=== PATIENT | female | born 1955 | race Caucasian/White ===

== ENCOUNTER 2024-12-12 20:51 | Emergency (ER) | payer MEDICARE ==
[~2024-12-12] VITALS: Ht 170.2 cm; Wt 68.0 kg
[2024-12-12] MEDS ORDERED: AMLODIPINE BESYL5 MG PO (20:59)
[2024-12-12] MEDS ORDERED: HYDROCHLOROTH12.5 M2 PO (20:59)
[2024-12-12 21:22] LABS: BASO % 0.4 % (0.0-1.0); EOS # 0.2 10*3/uL (0.0-0.4); EOS % 1.9 % (1.0-4.0); HEMATOCRIT 39.9 % (37.0-47.0); MEAN CELL VOLUME 91.5 fl (81.0-99.0); MEAN CORPUSCULAR HGB 30.7 pg (27.0-31.0); MEAN CORPUSCULAR HGB CONC 33.6 g/dl (33.0-37.0); MONO # 0.5 10*3/uL (0.1-1.0); MONO % 5.3 % (3.0-9.0); NEUT # 7.2 10*3/uL (2.3-7.9); NEUT % 75.6 % (47.0-73.0); PLATELET COUNT AUTOMATED 286 10*3/uL (130-400); RED BLOOD COUNT 4.36 10*6/uL (4.10-5.10); RED CELL DISTRI WIDTH 12.6 % (0-14.5); WHITE BLOOD COUNT 9.6 10*3/uL (4.8-10.8)
[2024-12-12 22:17] LABS: ALKALINE PHOSPHATASE 92 U/L (46-116); BUN 12 mg/dl (9-23); CHLORIDE 97 mmol/L (98-107); POTASSIUM 3.2 mmol/L (3.4-5.1); SGPT/ALT 15 U/L (5-49); TOTAL PROTEIN 8.2 gm/dL (6.0-8.0)
[2024-12-12] MEDS ORDERED: Midazolam Hydrochloride 5 MG/5 ML VIAL IV ONE (22:20)
[2024-12-12] MEDS ORDERED: ETOMIDATE 20 MG/10 ML VIAL IV ONE (22:25)
[2024-12-13] MEDS ORDERED: POTASSIUM CHLORIDE 20 MEQ TAB PO ONE (02:05)
== END 2024-12-13 02:07 | disposition home or self-care (01) ==
LOC: ED 20:51
PROVIDERS: Emergency Medicine
DX: S43.014A Anterior dislocation of right humerus, initial encounter (principal); I10 Essential (primary) hypertension; Z79.899 Other long term (current) drug therapy; X58.XXXA Exposure to other specified factors, initial encounter; Y93.89 Activity, other specified; Y92.89 Other specified places as the place of occurrence of the external cause; Y99.8 Other external cause status